=== PATIENT | female | born 1985 | race Caucasian/White ===

== ENCOUNTER 2017-01-30 14:08 | Emergency (ER) | payer OTHER ==
[~2017-01-30] VITALS: Ht 162.6 cm; Wt 110.3 kg
[~2017-01-30 14:08] MED LIST: ALBU-136 IH
[2017-01-30 14:15] VITALS: BP 119/68
--- NOTE | 2017-01-30 16:45 | NUR ---
31/F BIB SELF C/O THROAT PAIN AND DYSPHAGIA X 2 DAYS;DENIES BODYACHES, FEVER, CHILLS MILD MUFFLED VOICE, NO DROOLING NOTED;SPEAKS IN FULL SENTENCES. PT DENIES N/V/D; SKIN IS PINK/WARM/DRY; AAOX4 WITH EVEN AND STEADY GAIT; LUNGS CLEAR BL; HR EVEN AND REGULAR; PT DENIES ANY FEVER, CP, SOB, OR COUGH AT THIS TIME; PATIENT STATES PAIN OF 6/10 AT THIS TIME; VSS; PATIENT POSITIONED FOR COMFORT; HOB ELEVATED; BEDRAILS UP X2; BED DOWN. ER MD MADE AWARE OF PT STATUS.
[2017-01-30] MEDS ORDERED: AMOXICILLIN 500 MG CAP PO ONE (16:50)
[2017-01-30] MEDS ORDERED: LIDOCAINE VISCOUS 2% 20 ML UDC PO ONE (16:50)
[2017-01-30 17:12] VITALS: BP 124/78
--- NOTE | 2017-01-30 17:12 | NUR ---
Patient discharged with v/s stable. Written and verbal after care instructions given and explained. Patient alert, oriented and verbalized understanding of instructions. Ambulatory with steady gait. All questions addressed prior to discharge. ID band removed. Patient advised to follow up with PMD. Rx of AMOXICILLIN & LIDOCAIN HYDROCHLORIDE2% VISCOUS SOLUTION & MOTRIN given. Patient educated on indication of medication including possible reaction and side effects. Opportunity to ask questions provided and answered.
== END 2017-01-30 17:12 | disposition home or self-care (01) ==
LOC: MED 14:08
DX: J02.9 Acute pharyngitis, unspecified (principal); J45.909 Unspecified asthma, uncomplicated; Z88.6 Allergy status to analgesic agent
CPT/HCPCS: 99283

== ENCOUNTER 2019-05-12 18:48 | Emergency (ER) | payer OTHER ==
[~2019-05-12] VITALS: Ht 162.6 cm; Wt 113.9 kg
[2019-05-12 19:19] VITALS: BP 123/78
--- NOTE | 2019-05-12 19:42 | NUR ---
PT AMBULATED TO BED 6
--- NOTE | 2019-05-12 20:00 | NUR ---
PT CAME TO ER C/O OF LEFT ARM PAIN X 1 WEEK. PT DENIES TRAUMA OR INJURY. PAIN LEVEL 9/10, THROBBING. PER PT ARM PAIN IS PROVOKED WITH MOVEMENT. NO MED HX. SAFETY MEASURES IN PLACE. PA AT BEDSIDE.
[2019-05-12] MEDS ORDERED: KETOROLAC 60 MG/2 ML VIAL IM ONE (20:10)
[2019-05-12 20:38] VITALS: BP 123/78
--- NOTE | 2019-05-12 20:39 | NUR ---
Patient discharged with v/s stable. Written and verbal after care instructions given and explained. Patient alert, oriented and verbalized understanding of instructions. Ambulatory with steady gait. All questions addressed prior to discharge. ID band removed. Patient advised to follow up with PMD. Rx of ROBAXIN AND IBUPROFEN was given. Patient educated on indication of medication including possible reaction and side effects. Opportunity to ask questions provided and answered.
== END 2019-05-12 20:38 | disposition home or self-care (01) ==
LOC: MED 18:48
DX: M25.512 Pain in left shoulder (principal); J45.909 Unspecified asthma, uncomplicated; F17.210 Nicotine dependence, cigarettes, uncomplicated; Z88.5 Allergy status to narcotic agent; Z79.899 Other long term (current) drug therapy
CPT/HCPCS: 96372; 99283; J1885

== ENCOUNTER 2021-07-03 14:59 | Emergency (ER) | payer OTHER, SELFPAY ==
[~2021-07-03] VITALS: Ht 162.6 cm; Wt 124.7 kg
[~2021-07-03 14:59] MED LIST changes: +ALBU-118 IH; -ALBU-136 IH
[2021-07-03 15:12] VITALS: BP 140/97
--- NOTE | 2021-07-03 15:17 | NUR ---
C/O COUGH,STUFFY NOSE, COUGH X TODAY. PT TOOK IBUPROFEN 600 MG AT 2 PM D/T TEMP 100 F. TEMP 97.6 AT THIS TIME. PMH: ASTHMA, BLADDER REMOVAL, FATTY LIVER.
--- NOTE | 2021-07-03 15:47 | NUR ---
JOSHUA LADD COLLECTED AND WALKED OVER TO LAB
--- NOTE | 2021-07-03 15:49 | NUR ---
Patient discharged with v/s stable. Written and verbal after care instructions given and explained. Patient verbalized understanding. Ambulatory with steady gait. All questions addressed prior to discharge. Advised to follow up with PMD.
[2021-07-03 15:57] VITALS: BP 134/93
== END 2021-07-03 15:49 | disposition home or self-care (01) ==
LOC: MED 14:59
DX: R09.89 Other specified symptoms and signs involving the circulatory and respiratory systems (principal); Z20.822 Contact with and (suspected) exposure to COVID-19; F17.200 Nicotine dependence, unspecified, uncomplicated; J45.909 Unspecified asthma, uncomplicated; Z90.49 Acquired absence of other specified parts of digestive tract; Z88.5 Allergy status to narcotic agent; Z79.899 Other long term (current) drug therapy
CPT/HCPCS: 99283

== ENCOUNTER 2023-05-29 11:09 | Emergency (ER) | payer OTHER ==
[~2023-05-29] VITALS: Ht 157.5 cm; Wt 129.3 kg
[2023-05-29 11:26] VITALS: BP 159/105; PULSE 91; RESP 20; TEMP 97.6; O2SAT 99
[2023-05-29] MEDS ORDERED: KETOROLAC 30 MG/ML VIAL IM ONE (12:15)
[2023-05-29] MEDS ORDERED: LID5T TP (12:21)
[2023-05-29] MEDS ORDERED: CYCL-711 PO (12:21)
[2023-05-29] MEDS ORDERED: NAPR-54 PO (12:21)
[2023-05-29] MEDS ORDERED: HYDROcodone/APAP 10/325 MG 1 TAB TAB PO PRN (13:05)
== END 2023-05-29 13:42 | disposition home or self-care (01) ==
LOC: MED 11:09
DX: S46.812A Strain of other muscles, fascia and tendons at shoulder and upper arm level, left arm, initial encounter (principal); J45.909 Unspecified asthma, uncomplicated; Z79.899 Other long term (current) drug therapy; Z88.8 Allergy status to other drugs, medicaments and biological substances; X58.XXXA Exposure to other specified factors, initial encounter; Y93.89 Activity, other specified; Y92.89 Other specified places as the place of occurrence of the external cause; Y99.8 Other external cause status
CPT/HCPCS: 81025; 96372; 99283; J1885

== ENCOUNTER 2023-12-19 13:53 | Emergency (ER) | payer OTHER ==
[~2023-12-19] VITALS: Ht 165.1 cm; Wt 122.5 kg
[~2023-12-19 13:53] MED LIST changes: +CYCL-711 PO; +LID5T TP; +NAPR-54 PO
[2023-12-19 14:09] VITALS: BP 116/82; PULSE 101; RESP 18; TEMP 98.5; O2SAT 98
[2023-12-19] MEDS: BACITRACIN OINT 500 UNITS/GM PKT TP ONE (14:42)
[2023-12-19] MEDS: IBUPROFEN 600 MG TAB PO ONE (14:42)
[2023-12-19] MEDS ORDERED: LIDOCAINE MPF 1% 5 ML ONE (14:50)
[2023-12-19] MEDS ORDERED: BACI-418 TP (15:16)
[2023-12-19] MEDS ORDERED: IBUP-2213 PO (15:16)
[2023-12-19] MEDS ORDERED: AMOX1TAB8 PO (15:16)
[2023-12-19 15:24] VITALS: BP 116/82; PULSE 101; RESP 18; TEMP 98.5; O2SAT 98
== END 2023-12-19 15:23 | disposition home or self-care (01) ==
LOC: MED 13:53
DX: S51.811A Laceration without foreign body of right forearm, initial encounter (principal); J45.909 Unspecified asthma, uncomplicated; Z88.5 Allergy status to narcotic agent; Z79.899 Other long term (current) drug therapy; W54.0XXA Bitten by dog, initial encounter; Y93.89 Activity, other specified; Y92.89 Other specified places as the place of occurrence of the external cause; Y99.8 Other external cause status
CPT/HCPCS: 12001; 90471; 90715; 99283; J2001

== ENCOUNTER 2024-04-07 18:03 | Emergency (ER) | payer OTHER ==
[~2024-04-07] VITALS: Ht 162.6 cm; Wt 122.5 kg
[~2024-04-07 18:03] MED LIST changes: +AMOX1TAB8 PO; +BACI-418 TP; +IBUP-2213 PO; +NAPR-337 PO; -NAPR-54 PO
[2024-04-07 18:04] VITALS: BP 154/93; PULSE 117; RESP 18; TEMP 98.1; O2SAT 97
[2024-04-07 18:50] VITALS: PULSE 116; RESP 16; O2SAT 99
[2024-04-07] MEDS: ALBUTEROL SULFATE/IPRATROPIU 3 ML SOL IH ONE (18:50)
[2024-04-07] MEDS: methylPREDNISolone SS 125 MG/2 ML VIAL IVP ONE (19:36)
[2024-04-07 19:39] LABS: BASOPHILS # (AUTO) 0.1 K/uL (0.00-0.22); BASOPHILS % (AUTO) 0.4 % (0.0-2.0); EOSINOPHILS # (AUTO) 0.1 K/uL (0-0.4); EOSINOPHILS % (AUTO) 0.8 % (0.0-4.0); HEMATOCRIT 38.8 % (36-48); HEMOGLOBIN 12.7 g/dL (12.0-16.0); LYMPHOCYTES # (AUTO) 1.8 K/uL (2.5-16.5); LYMPHOCYTES % (AUTO) 13.3 % (20.5-51.1); MEAN CORPUSCULAR HEMOGLOBIN 24 pg (27-31); MEAN CORPUSCULAR HGB CONC 33 g/dL (33-37); MONOCYTES # (AUTO) 0.7 K/uL (0.8-1.0); MONOCYTES % (AUTO) 5.2 % (1.7-9.3); NEUTROPHILS # (AUTO) 10.9 K/uL (1.8-7.7); NEUTROPHILS % (AUTO) 80.3 % (42.2-75.2); PLATELET COUNT (AUTO) 350 K/uL (140-450); RED CELL DISTRIBUTION WIDTH 15.9 % (11.6-13.7); WHITE BLOOD COUNT (AUTO) 13.6 K/uL (4.8-10.8)
[2024-04-07 19:43] LABS: FLU A ANTIGEN negative (NEGATIVE); FLU B ANTIGEN NEGATIVE (NEGATIVE)
[2024-04-07 19:54] LABS: CALCIUM 8.8 mg/dL (8.5-10.1); CARBON DIOXIDE 25.8 mmol/L (21-32); CREATININE 0.9 mg/dL (0.6-1.3); POTASSIUM 3.8 mmol/L (3.5-5.1)
[2024-04-07] MEDS: KETOROLAC 30 MG/ML VIAL IVP ONE (21:54)
[2024-04-07] MEDS: NACL 0.9% 1,000 ML IV ONE (21:54)
[2024-04-07] MEDS ORDERED: cefTRIAXone 1,000 MG VIAL ONE (21:54)
[2024-04-07 22:01] LABS: APPEARANCE,URINE CLEAR (CLEAR); BILIRUBIN,URINE NEGATIVE (NEGATIVE); BLOOD, URINE TRACE-I (NEGATIVE); COLOR,URINE YELLOW (YELLOW); LEUKOCYTE ESTERASE ,URINE 1+ (NEGATIVE); NITRITE, URINE NEGATIVE (NEGATIVE); PROTEIN,URINE NEGATIVE (NEGATIVE); UGLUCOSE NEGATIVE (NEGATIVE); UROBILINOGEN,URINE 0.2 EU/dL (0.2 - 1)
[2024-04-07] MEDS ORDERED: ACET-10509 PO (22:06)
[2024-04-07] MEDS ORDERED: IBUP-2213 PO (22:06)
[2024-04-07] MEDS ORDERED: CEPH-588 PO (22:06)
[2024-04-07 22:08] LABS: BACTERIA,URINE 10-30 (MOD) /HPF (None Seen); MUCUS,URINE 1+ /LPF (None Seen); RBC,URINE 0-5 /HPF (0-5); SQUAMOUS EPITHELIAL CELL,UR 4-10 (MOD) /LPF (0-3 (FEW))
[2024-04-07] MEDS ORDERED: PRED20TA5 PO (22:08)
[2024-04-07] MEDS ORDERED: ALBU0.0912 INH (22:08)
[2024-04-07 22:34] VITALS: BP 134/96; PULSE 110; RESP 18; TEMP 98.1; O2SAT 98
== END 2024-04-07 22:34 | disposition home or self-care (01) ==
LOC: MED 18:03
DX: N39.0 Urinary tract infection, site not specified (principal); R07.89 Other chest pain; E11.9 Type 2 diabetes mellitus without complications; J45.909 Unspecified asthma, uncomplicated; Z20.822 Contact with and (suspected) exposure to COVID-19; Z79.1 Long term (current) use of non-steroidal anti-inflammatories (NSAID); Z79.899 Other long term (current) drug therapy; Z79.2 Long term (current) use of antibiotics; Z88.5 Allergy status to narcotic agent
CPT/HCPCS: 36415; 71045; 80048; 81001; 81025; 84484; 85025; 85379; 87086; 87426; 87804; 93005; 94640; 96365; 96375; 99285; J0696; J1885; J2919